=== PATIENT | male | born 1955 | race Caucasian/White ===

== ENCOUNTER 2022-12-31 00:52 | Observation (INO) | payer MEDICARE, OTHER ==
[2022-12-31] MEDS ORDERED: ONDANSETRON *ODT* 4 MG TABLET SL ONE (02:24)
[2022-12-31] MEDS ORDERED: ACETAMINOPHEN 325 MG TABLET (FP) PO ONE (02:25)
[2022-12-31] MEDS ORDERED: ONDANSETRON *ODT* 4 MG TABLET ONE (02:41)
[2022-12-31] MEDS ORDERED: ACETAMINOPHEN 325 MG TABLET (FP) ONE (02:41)
[2022-12-31] MEDS ORDERED: THIAMINE HCL 200 MG/2 ML VIAL IVPB ONE (04:37)
[2022-12-31] MEDS ORDERED: FAMOTIDINE 20 MG/50 ML IVPB 20 MG/50 ML MG IVPB ONE ×2 (04:38→04:55)
[2022-12-31] MEDS ORDERED: FOLIC ACID 1 MG TABLET (FP) PO ONE (04:44)
[2022-12-31] MEDS ORDERED: ONDANSETRON 4 MG/2 ML VIAL IVPUSH ONE (04:44)
[2022-12-31] MEDS ORDERED: FOLIC ACID 1 MG TABLET (FP) ONE (04:55)
[2022-12-31] MEDS ORDERED: ONDANSETRON 4 MG/2 ML VIAL ONE (04:55)
[2022-12-31] MEDS ORDERED: THIAMINE HCL 200 MG/2 ML VIAL ONE (04:55)
[2022-12-31 05:25] LABS: BASO % 0.9 % (0-2.0); EOS % 4.3 % (0-4.5); HEMATOCRIT 34.9 % (35.4-49); HEMOGLOBIN 11.8 GM/dL (11.7-16.9); LYMPH % 32.3 % (8-40); MCH 31.4 pg (25.7-33.7); MCHC 33.8 g/dl (32.0-35.9); MEAN CELL VOLUME 93.1 fl (80-96); MEAN PLT VOLUME 7.2 fl (7.5-11.1); MONO % 6.9 % (3.8-10.2); NEUT % 55.6 % (42.8-82.8); PLATELET COUNT 379 10^3/uL (134-434); RBC 3.74 M/mm3 (4.00-5.60); RDW 13.4 % (11.9-15.9); WHITE BLOOD COUNT 5.3 K/mm3 (4.0-10.0)
[2022-12-31 05:43] LABS: POTASSIUM 4.6 mmol/L (3.5-5.1)
[2022-12-31 05:45] LABS: CALCIUM 8.3 mg/dL (8.5-10.1)
[2022-12-31 05:46] LABS: ALBUMIN 3.4 g/dl (3.4-5.0); BLOOD UREA NITROGEN 9.1 mg/dL (7-18); MAGNESIUM 1.9 mg/dL (1.8-2.4)
[2022-12-31 05:48] LABS: CREATININE 0.8 mg/dL (0.55-1.3); PHOSPHOROUS 3.8 mg/dL (2.5-4.9)
[2022-12-31 05:50] LABS: BILIRUBIN,TOTAL 0.2 mg/dL (0.2-1); TOT PROT 7.1 g/dl (6.4-8.2)
[2022-12-31 05:52] LABS: INR 1.03 (0.83-1.09)
[2022-12-31 05:54] LABS: ACTIVATED PTT 28.3 SECONDS (25.2-36.5)
[2022-12-31] MEDS ORDERED: LACTATED RINGERS SOLUTION 1000 ML INFUS.BAG IV ONE (06:00)
[2022-12-31 08:12] LABS: EPI CELLS 14 /uL (0-25.1); HYALINE CASTS 1 /uL (0-3.1); PH,URINE 5.5 (5.0-8.0); URINE APPEARANCE CLEAR; URINE BACTERIA 103 /uL (0-1359); URINE BILIRUBIN NEGATIVE (NEGATIVE); URINE COLOR YELLOW; URINE GLUCOSE (UA) NEGATIVE (NEGATIVE); URINE KETONE TRACE (NEGATIVE); URINE LEUK ESTERASE TRACE (NEGATIVE); URINE NITRITE NEGATIVE (NEGATIVE); URINE PROTEIN NEGATIVE (NEGATIVE); URINE RBC 3 /uL (0-23.9); URINE UROBILINOGEN 0.2 mg/dL (0.2-1.0); URINE WBC 7 /uL (0-25.8)
[2022-12-31 08:35] LABS: COCAINE, UR NEGATIVE (NEGATIVE); METHADONE, UR NEGATIVE (NEGATIVE); OPIATES, URI NEGATIVE (NEGATIVE); PHENCYCLIDINE,URINE NEGATIVE (NEGATIVE); URINE AMPHETAMINES NEGATIVE (NEGATIVE); URINE BENZODIAZEPINES NEGATIVE (NEGATIVE)
[2022-12-31 08:36] LABS: URINE BARBITURATES NEGATIVE (NEGATIVE)
[2022-12-31 20:20] LABS: POTASSIUM 4.3 mmol/L (3.5-5.1)
[2022-12-31 20:22] LABS: BLOOD UREA NITROGEN 9.1 mg/dL (7-18)
[2022-12-31 20:25] LABS: CREATININE 0.8 mg/dL (0.55-1.3)
[2022-12-31] MEDS: PHENYTOIN NA EXTENDED 100 MG CAPSULE (FP) PO SCH (22:09)
[2023-01-01] MEDS: PHENYTOIN NA EXTENDED 100 MG CAPSULE (FP) PO SCH ×3 (05:58→21:45)
[2023-01-01] MEDS: LACTATED RINGERS SOLUTION 1,000 ML/1,000 ML INFUS.BAG IV SCH (05:58)
[2023-01-01] MEDS: THIAMINE HCL 100 MG TABLET (FP) PO SCH (09:22)
[2023-01-01] MEDS: FOLIC ACID 1 MG TABLET (FP) PO SCH (09:22)
[2023-01-01 11:06] LABS: CALCIUM 9.5 mg/dL (8.5-10.1)
[2023-01-01 11:07] LABS: BLOOD UREA NITROGEN 7.6 mg/dL (7-18)
[2023-01-01 11:10] LABS: CREATININE 0.8 mg/dL (0.55-1.3)
[2023-01-01] MEDS ORDERED: ACETAMINOPHEN 325 MG TABLET (FP) PO PRN (21:10)
[2023-01-02] MEDS: PHENYTOIN NA EXTENDED 100 MG CAPSULE (FP) PO SCH ×3 (06:17→21:28)
[2023-01-02] MEDS: LACTATED RINGERS SOLUTION 1,000 ML/1,000 ML INFUS.BAG IV SCH (06:18)
[2023-01-02] MEDS: FOLIC ACID 1 MG TABLET (FP) PO SCH (09:55)
[2023-01-02] MEDS: THIAMINE HCL 100 MG TABLET (FP) PO SCH (09:56)
[2023-01-02 11:05] LABS: POTASSIUM 3.9 mmol/L (3.5-5.1)
[2023-01-02 11:17] LABS: BLOOD UREA NITROGEN 8.1 mg/dL (7-18); CALCIUM 9.5 mg/dL (8.5-10.1)
[2023-01-02 11:21] LABS: CREATININE 0.8 mg/dL (0.55-1.3)
[2023-01-03] MEDS: PHENYTOIN NA EXTENDED 100 MG CAPSULE (FP) PO SCH ×2 (06:29→15:12)
[2023-01-03 08:14] VITALS: BP 106/72; PULSE 82; RESP 16; TEMP 97.7
[2023-01-03] MEDS: THIAMINE HCL 100 MG TABLET (FP) PO SCH (09:25)
[2023-01-03] MEDS: FOLIC ACID 1 MG TABLET (FP) PO SCH (09:25)
[2023-01-03] MEDS ORDERED: LIDOCAINE 4% PATCH TP ONE (10:00)
[2023-01-03 12:39] VITALS: BMI 18.8
[2023-01-03] MEDS ORDERED: LIDOCAINE PATCH REMOVAL MC ONE (22:00)
== END 2023-01-03 17:40 ==
LOC: JER 00:52 → JERBED 06:40 → J6S 17:42
PROVIDERS: ADMIT Family Medicine; ATTEND Family Medicine
PROC: 3E03329 Introduction of Other Anti-infective into Peripheral Vein, Percutaneous Approach (ICD-10-PCS; principal; 2022-12-31)
PROC: 3E0337Z Introduction of Electrolytic and Water Balance Substance into Peripheral Vein, Percutaneous Approach (ICD-10-PCS; 2022-12-31)
PROC: 3E033GC Introduction of Other Therapeutic Substance into Peripheral Vein, Percutaneous Approach (ICD-10-PCS; 2022-12-31)
DX: E87.1 Hypo-osmolality and hyponatremia (principal); K85.90 Acute pancreatitis without necrosis or infection, unspecified; F10.10 Alcohol abuse, uncomplicated; J44.9 Chronic obstructive pulmonary disease, unspecified; G40.909 Epilepsy, unspecified, not intractable, without status epilepticus; R29.6 Repeated falls; F17.200 Nicotine dependence, unspecified, uncomplicated
CPT/HCPCS: 0241U-QW; 36415; 71045-TC-FY; 74177-TC; 80048; 80053; 80307; 81003; 83605; 83690; 83735; 84100; 84484; 85025; 85610; 85730; 87086; 93005; 93010; 96361; 96365; 96375; 97116-GP; 97162-GP; 99285-25; G0378; Q0162; Q9967

== ENCOUNTER 2024-03-06 11:26 | Inpatient (IN) | payer OTHER ==
[2024-03-06] MEDS ORDERED: ACETAMINOPHEN 325 MG TABLET (FP) ONE (12:48)
[2024-03-06] MEDS: ACETAMINOPHEN 500 MG TABLET (FP) PO ONE (12:49)
[2024-03-06 13:02] LABS: BASO % 0.6 % (0-2.0); EOS % 2.5 % (0-4.5); HEMATOCRIT 34.3 % (35.4-49); HEMOGLOBIN 11.9 GM/dL (11.7-16.9); LYMPH % 16.9 % (8-40); MCH 31.7 pg (25.7-33.7); MCHC 34.8 g/dl (32.0-35.9); MEAN CELL VOLUME 91.1 fl (80-96); MEAN PLT VOLUME 7.1 fl (7.5-11.1); MONO % 11.7 % (3.8-10.2); NEUT % 68.3 % (42.8-82.8); PLATELET COUNT 281 10^3/uL (134-434); RBC 3.76 M/mm3 (4.00-5.60); WHITE BLOOD COUNT 5.1 K/mm3 (4.0-10.0)
[2024-03-06 13:16] LABS: POTASSIUM 4.3 mmol/L (3.5-5.1)
[2024-03-06 13:18] LABS: ALBUMIN 3.7 g/dl (3.4-5.0); CALCIUM 9.1 mg/dL (8.5-10.1)
[2024-03-06 13:22] LABS: CREATININE 0.8 mg/dL (0.55-1.3)
[2024-03-06 13:24] LABS: BILIRUBIN,TOTAL 0.2 mg/dL (0.2-1)
[2024-03-06 16:13] LABS: URINE APPEARANCE CLEAR; URINE BILIRUBIN NEGATIVE (NEGATIVE); URINE COLOR YELLOW; URINE GLUCOSE (UA) NEGATIVE (NEGATIVE); URINE KETONE NEGATIVE (NEGATIVE); URINE LEUK ESTERASE NEGATIVE (NEGATIVE); URINE NITRITE NEGATIVE (NEGATIVE); URINE PROTEIN NEGATIVE (NEGATIVE); URINE UROBILINOGEN 0.2 mg/dL (0.2-1.0)
[2024-03-07] MEDS ORDERED: ACETAMINOPHEN 1000 MG/100 ML BAG IVPB PRN (01:06)
[2024-03-07 06:08] VITALS: BMI 18.4
[2024-03-07 07:19] LABS: BASO % 0.9 % (0-2.0); EOS % 5.6 % (0-4.5); HEMATOCRIT 34.2 % (35.4-49); HEMOGLOBIN 11.3 GM/dL (11.7-16.9); LYMPH % 24.1 % (8-40); MCH 30.7 pg (25.7-33.7); MCHC 32.9 g/dl (32.0-35.9); MEAN CELL VOLUME 93.3 fl (80-96); MEAN PLT VOLUME 7.5 fl (7.5-11.1); MONO % 11.5 % (3.8-10.2); NEUT % 57.9 % (42.8-82.8); PLATELET COUNT 270 10^3/uL (134-434); RBC 3.66 M/mm3 (4.00-5.60); RDW 13.5 % (11.9-15.9); WHITE BLOOD COUNT 4.4 K/mm3 (4.0-10.0)
[2024-03-07 07:29] LABS: POTASSIUM 3.9 mmol/L (3.5-5.1)
[2024-03-07 07:30] LABS: CALCIUM 9.1 mg/dL (8.5-10.1)
[2024-03-07 07:31] LABS: ALBUMIN 3.8 g/dl (3.4-5.0); BLOOD UREA NITROGEN 12.3 mg/dL (7-18)
[2024-03-07 07:34] LABS: CREATININE 0.8 mg/dL (0.55-1.3)
[2024-03-07 07:36] LABS: BILIRUBIN,TOTAL 0.4 mg/dL (0.2-1)
[2024-03-07] MEDS: PHENYTOIN NA EXTENDED 100 MG CAPSULE (FP) PO SCH (07:46)
[2024-03-07] MEDS: THIAMINE 100 MG TABLET PO SCH (10:30)
[2024-03-07] MEDS: FOLIC ACID 1 MG TABLET (FP) PO SCH (10:30)
[2024-03-07] MEDS: NICOTINE 21 MG/24 HOURS TOPICAL PATCH TD SCH (21:04)
[2024-03-07] MEDS: BUDESONIDE/FORMETEROL FUMARATE 160/4.5 mcg INHALER IH SCH (21:05)
[2024-03-08 08:22] LABS: BASO % 0.8 % (0-2.0); EOS % 5.3 % (0-4.5); HEMOGLOBIN 11.8 GM/dL (11.7-16.9); LYMPH % 19.5 % (8-40); MCH 31.5 pg (25.7-33.7); MCHC 34.6 g/dl (32.0-35.9); MEAN PLT VOLUME 7.6 fl (7.5-11.1); MONO % 9.7 % (3.8-10.2); NEUT % 64.7 % (42.8-82.8); PLATELET COUNT 268 10^3/uL (134-434); RBC 3.74 M/mm3 (4.00-5.60); RDW 14.1 % (11.9-15.9); WHITE BLOOD COUNT 4.6 K/mm3 (4.0-10.0)
[2024-03-08 08:37] LABS: POTASSIUM 4.6 mmol/L (3.5-5.1)
[2024-03-08 08:45] LABS: CALCIUM 9.2 mg/dL (8.5-10.1)
[2024-03-08 08:46] LABS: ALBUMIN 3.7 g/dl (3.4-5.0); BLOOD UREA NITROGEN 13.3 mg/dL (7-18)
[2024-03-08 08:49] LABS: CREATININE 0.7 mg/dL (0.55-1.3)
[2024-03-08 08:50] LABS: BILIRUBIN,TOTAL 0.4 mg/dL (0.2-1); TOT PROT 7.1 g/dl (6.4-8.2)
[2024-03-08 08:57] LABS: N-TERMINAL BNP 250.5 pg/ml (5-125)
[2024-03-09 08:59] LABS: BASO % 0.8 % (0-2.0); EOS % 3.6 % (0-4.5); HEMOGLOBIN 11.8 GM/dL (11.7-16.9); LYMPH % 17.1 % (8-40); MCH 31.2 pg (25.7-33.7); MCHC 33.7 g/dl (32.0-35.9); MEAN CELL VOLUME 92.5 fl (80-96); MEAN PLT VOLUME 7.9 fl (7.5-11.1); MONO % 10.2 % (3.8-10.2); NEUT % 68.3 % (42.8-82.8); PLATELET COUNT 294 10^3/uL (134-434); RBC 3.79 M/mm3 (4.00-5.60); RDW 13.9 % (11.9-15.9); WHITE BLOOD COUNT 5.6 K/mm3 (4.0-10.0)
[2024-03-09 09:14] LABS: BLOOD UREA NITROGEN 11.6 mg/dL (7-18); CALCIUM 9.3 mg/dL (8.5-10.1)
[2024-03-09 09:15] LABS: ALBUMIN 3.7 g/dl (3.4-5.0)
[2024-03-09 09:17] LABS: BILIRUBIN,TOTAL 0.5 mg/dL (0.2-1); CREATININE 0.7 mg/dL (0.55-1.3)
[2024-03-09 09:19] LABS: TOT PROT 7.1 g/dl (6.4-8.2)
[2024-03-10] MEDS: ACETAMINOPHEN 1000 MG/100 ML BAG IVPB PRN (11:27)
[2024-03-10] MEDS: KETOROLAC TROMETHAMINE 15 MG/ML VIAL IVPUSH ONE (20:49)
[2024-03-10] MEDS: LIDOCAINE 4% PATCH TP SCH (21:36)
[2024-03-10 23:13] VITALS: RESP 18
[2024-03-11] MEDS: LIDOCAINE PATCH REMOVAL MC SCH (10:52)
[2024-03-11 13:12] VITALS: BP 113/67; PULSE 100; TEMP 97.5
== END 2024-03-11 11:24 | disposition home or self-care (01) | DRG 312 ==
LOC: JER 11:26 → JERBED 16:50 → J4S 20:42 → OBSVTOIN 03-07 01:01
PROVIDERS: ADMIT Internal Medicine; ATTEND Internal Medicine
DX: R55 Syncope and collapse (principal); J44.9 Chronic obstructive pulmonary disease, unspecified; G40.909 Epilepsy, unspecified, not intractable, without status epilepticus; I10 Essential (primary) hypertension; R29.6 Repeated falls; R25.1 Tremor, unspecified; F10.10 Alcohol abuse, uncomplicated; W19.XXXA Unspecified fall, initial encounter; Y92.008 Other place in unspecified non-institutional (private) residence as the place of occurrence of the external cause; Y99.8 Other external cause status
CPT/HCPCS: 0241U-QW; 36415; 70450-TC; 71045-TC-FY; 71101-TC-LT-FY; 72125-TC; 72170-TC-FY; 80053; 80061; 81003; 82962; 83036; 83735; 83880; 84439; 84443; 84484; 85025; 87086; 93005; 93010; 93306-TC; 93880-TC; 97116-GP; 97162-GP; 99285-25; G0378; J0131

== ENCOUNTER 2024-04-04 18:00 | Emergency (ER) | payer OTHER ==
[2024-04-04 19:02] LABS: INR 1.05 (0.83-1.09); PROTHROMBIN TIME (PATIENT) 11.5 SEC (9.7-13.0)
[2024-04-04 19:04] LABS: ACTIVATED PTT 32.6 SECONDS (25.2-36.5)
[2024-04-04 19:09] LABS: BASO % 0.9 % (0-2.0); EOS % 4.1 % (0-4.5); HEMATOCRIT 35.3 % (35.4-49); HEMOGLOBIN 11.6 GM/dL (11.7-16.9); LYMPH % 19.1 % (8-40); MCH 30.8 pg (25.7-33.7); MEAN CELL VOLUME 93.2 fl (80-96); MEAN PLT VOLUME 7.5 fl (7.5-11.1); MONO % 9.3 % (3.8-10.2); NEUT % 66.6 % (42.8-82.8); PLATELET COUNT 266 10^3/uL (134-434); RBC 3.79 M/mm3 (4.00-5.60); RDW 13.1 % (11.9-15.9); WHITE BLOOD COUNT 6.5 K/mm3 (4.0-10.0)
[2024-04-04 19:11] LABS: VENOUS BASE EXCESS 1.6 mmol/L (-2-2); VENOUS O2 SATURATION 23.9 % (70-80); VENOUS PCO2 56.7 mmHg (38-52); VENOUS PH 7.322 (7.310-7.410)
[2024-04-04 19:13] VITALS: RESP 18; BMI 19.3
[2024-04-04 19:17] LABS: POTASSIUM 4.3 mmol/L (3.5-5.1)
[2024-04-04 19:19] LABS: CALCIUM 8.9 mg/dL (8.5-10.1)
[2024-04-04 19:20] LABS: ALBUMIN 4.1 g/dl (3.4-5.0); BLOOD UREA NITROGEN 17.4 mg/dL (7-18)
[2024-04-04 19:23] LABS: CREATININE 0.7 mg/dL (0.55-1.3)
[2024-04-04 19:24] LABS: BILIRUBIN,TOTAL 0.2 mg/dL (0.2-1); TOT PROT 7.9 g/dl (6.4-8.2)
[2024-04-05 06:54] VITALS: BP 97/59; PULSE 91; TEMP 97.5
== END 2024-04-05 08:41 | disposition home or self-care (01) ==
LOC: JER 18:00
DX: F10.10 Alcohol abuse, uncomplicated (principal); M79.602 Pain in left arm; M79.605 Pain in left leg; E87.1 Hypo-osmolality and hyponatremia; Y90.6 Blood alcohol level of 120-199 mg/100 ml
CPT/HCPCS: 0241U-QW; 36415; 70450-TC; 71045-TC-FY; 71250-TC; 72125-TC; 80053; 80307; 82803; 82962; 83690; 84484; 85025; 85610; 85730; 93005; 93010; 99285-25

== ENCOUNTER 2024-04-07 18:57 | Inpatient (IN) | payer OTHER ==
[2024-04-07] MEDS ORDERED: FAMOTIDINE 20 MG/50 ML IVPB 20 MG/50 ML MG IVPB ONE (20:32)
[2024-04-07] MEDS ORDERED: ACETAMINOPHEN INJECTION 100 ML ONE (20:32)
[2024-04-07] MEDS: ACETAMINOPHEN 1000 MG/100 ML BAG IVPB ONE (20:44)
[2024-04-07] MEDS: SODIUM CHLORIDE 0.9% 500 ML INFUS.BAG IV ONE ×2 (20:44→23:24)
[2024-04-07] MEDS: FAMOTIDINE 20 MG/50 ML IVPB 20 MG/50 ML MG IVPB ONE (20:50)
[2024-04-07 20:58] LABS: BASO % 0.6 % (0-2.0); EOS % 5.2 % (0-4.5); HEMATOCRIT 31.5 % (35.4-49); HEMOGLOBIN 10.7 GM/dL (11.7-16.9); LYMPH % 25.4 % (8-40); MCH 31.2 pg (25.7-33.7); MCHC 34.1 g/dl (32.0-35.9); MEAN CELL VOLUME 91.5 fl (80-96); MEAN PLT VOLUME 7.1 fl (7.5-11.1); MONO % 9.1 % (3.8-10.2); NEUT % 59.7 % (42.8-82.8); PLATELET COUNT 250 10^3/uL (134-434); RBC 3.45 M/mm3 (4.00-5.60); RDW 13.3 % (11.9-15.9); WHITE BLOOD COUNT 5.6 K/mm3 (4.0-10.0)
[2024-04-07 21:15] LABS: POTASSIUM 4.2 mmol/L (3.5-5.1)
[2024-04-07 21:18] LABS: CALCIUM 9.1 mg/dL (8.5-10.1)
[2024-04-07 21:19] LABS: ALBUMIN 3.6 g/dl (3.4-5.0); MAGNESIUM 1.8 mg/dL (1.8-2.4)
[2024-04-07 21:23] LABS: BILIRUBIN,TOTAL 0.3 mg/dL (0.2-1); CREATININE 0.7 mg/dL (0.55-1.3); PHOSPHOROUS 3.7 mg/dL (2.5-4.9); TOT PROT 7.3 g/dl (6.4-8.2)
[2024-04-08] MEDS ORDERED: diazePAM CARPU-JECT 10 MG/2 ML DISP.SYRIN ONE (00:30)
[2024-04-08] MEDS: diazePAM CARPU-JECT 10 MG/2 ML DISP.SYRIN IVPUSH ONE (00:35)
[2024-04-08] MEDS ORDERED: DOCUSATE SODIUM 100 MG CAPSULE (FP) PO PRN (03:05)
[2024-04-08] MEDS ORDERED: FLUTICASONE PROP 0.05% 16 GM NASAL SPRAY NS PRN (05:51)
[2024-04-08] MEDS ORDERED: MELATONIN 5 MG TABLETS PO PRN (05:52)
[2024-04-08] MEDS: LACTATED RINGERS SOLUTION 1,000 ML/1,000 ML INFUS.BAG IV SCH (05:54)
[2024-04-08] MEDS: PHENYTOIN NA EXTENDED 100 MG CAPSULE (FP) PO SCH (06:18)
[2024-04-08 08:04] LABS: BASO % 0.9 % (0-2.0); HEMATOCRIT 29.9 % (35.4-49); HEMOGLOBIN 10.5 GM/dL (11.7-16.9); LYMPH % 13.9 % (8-40); MCH 31.9 pg (25.7-33.7); MCHC 34.9 g/dl (32.0-35.9); MEAN CELL VOLUME 91.2 fl (80-96); MONO % 11.5 % (3.8-10.2); NEUT % 67.7 % (42.8-82.8); PLATELET COUNT 242 10^3/uL (134-434); RBC 3.28 M/mm3 (4.00-5.60); RDW 13.3 % (11.9-15.9); WHITE BLOOD COUNT 5.4 K/mm3 (4.0-10.0)
[2024-04-08] MEDS ORDERED: PANTOPRAZOLE 40 MG TABLET PO ONE (09:54)
[2024-04-08] MEDS ORDERED: FOLIC ACID 1 MG TABLET (FP) ONE (09:54)
[2024-04-08] MEDS: FOLIC ACID 1 MG TABLET (FP) PO SCH (10:02)
[2024-04-08] MEDS: PANTOPRAZOLE 40 MG TABLET PO SCH (10:02)
[2024-04-08] MEDS: MULTIVITAMINS THER W-MINERALS COMBO TABLET (FP) PO SCH (10:03)
[2024-04-08] MEDS: THIAMINE 100 MG TABLET PO SCH (10:03)
[2024-04-08] MEDS: HEPARIN NA (PORCINE) 5,000 UNITS/ML 1ML VIAL SQ SCH (15:00)
[2024-04-08] MEDS ORDERED: PHENYTOIN NA EXTENDED 100 MG CAPSULE (FP) ONE ×2 (15:31→21:17)
[2024-04-08] MEDS ORDERED: HEPARIN NA (PORCINE) 5,000 UNITS/ML 1ML VIAL ONE ×2 (15:31→21:18)
[2024-04-08] MEDS: BUDESONIDE/FORMETEROL FUMARATE 160/4.5 mcg INHALER IH SCH (22:40)
[2024-04-09] MEDS ORDERED: HEPARIN NA (PORCINE) 5,000 UNITS/ML 1ML VIAL ONE ×2 (06:07→12:54)
[2024-04-09] MEDS ORDERED: PHENYTOIN NA EXTENDED 100 MG CAPSULE (FP) ONE ×2 (06:07→12:54)
[2024-04-09 07:22] LABS: BASO % 0.7 % (0-2.0); EOS % 8.3 % (0-4.5); HEMATOCRIT 29.6 % (35.4-49); HEMOGLOBIN 10.1 GM/dL (11.7-16.9); LYMPH % 17.5 % (8-40); MCH 31.7 pg (25.7-33.7); MCHC 34.3 g/dl (32.0-35.9); MEAN CELL VOLUME 92.4 fl (80-96); MEAN PLT VOLUME 7.7 fl (7.5-11.1); MONO % 11.3 % (3.8-10.2); NEUT % 62.2 % (42.8-82.8); PLATELET COUNT 243 10^3/uL (134-434); RDW 12.9 % (11.9-15.9); WHITE BLOOD COUNT 5.3 K/mm3 (4.0-10.0)
[2024-04-09 07:36] LABS: POTASSIUM 4.3 mmol/L (3.5-5.1)
[2024-04-09 07:44] LABS: CALCIUM 8.8 mg/dL (8.5-10.1)
[2024-04-09 07:45] LABS: ALBUMIN 3.3 g/dl (3.4-5.0); BLOOD UREA NITROGEN 17.4 mg/dL (7-18); MAGNESIUM 1.8 mg/dL (1.8-2.4)
[2024-04-09 07:48] LABS: CREATININE 0.6 mg/dL (0.55-1.3)
[2024-04-09 07:49] LABS: BILIRUBIN,TOTAL 0.3 mg/dL (0.2-1); TOT PROT 6.2 g/dl (6.4-8.2)
[2024-04-09 07:56] LABS: INR 1.05 (0.83-1.09); PROTHROMBIN TIME (PATIENT) 11.4 SEC (9.7-13.0)
[2024-04-09 07:59] LABS: ACTIVATED PTT 27.4 SECONDS (25.2-36.5)
[2024-04-09] MEDS ORDERED: FOLIC ACID 1 MG TABLET (FP) ONE (08:54)
[2024-04-09] MEDS ORDERED: NICOTINE 14 MG/24 HOURS TOPICAL PATCH TD ONE (16:23)
[2024-04-09] MEDS: NICOTINE 14 MG/24 HOURS TOPICAL PATCH TD SCH (16:39)
[2024-04-09] MEDS: ATORVASTATIN CA 10 MG TABLET (FP) PO SCH (22:58)
[2024-04-10 08:15] LABS: BASO % 0.7 % (0-2.0); HEMATOCRIT 30.5 % (35.4-49); HEMOGLOBIN 10.5 GM/dL (11.7-16.9); LYMPH % 18.9 % (8-40); MCH 31.6 pg (25.7-33.7); MCHC 34.3 g/dl (32.0-35.9); MEAN CELL VOLUME 92.3 fl (80-96); MEAN PLT VOLUME 8.1 fl (7.5-11.1); MONO % 9.9 % (3.8-10.2); NEUT % 63.5 % (42.8-82.8); PLATELET COUNT 257 10^3/uL (134-434); RBC 3.31 M/mm3 (4.00-5.60); RDW 13.3 % (11.9-15.9); WHITE BLOOD COUNT 4.8 K/mm3 (4.0-10.0)
[2024-04-10 08:37] LABS: POTASSIUM 4.3 mmol/L (3.5-5.1)
[2024-04-10 08:39] LABS: CALCIUM 9.2 mg/dL (8.5-10.1)
[2024-04-10 08:40] LABS: ALBUMIN 3.5 g/dl (3.4-5.0); BLOOD UREA NITROGEN 14.6 mg/dL (7-18)
[2024-04-10 08:43] LABS: CREATININE 0.7 mg/dL (0.55-1.3)
[2024-04-10 08:44] LABS: BILIRUBIN,TOTAL 0.4 mg/dL (0.2-1); TOT PROT 6.7 g/dl (6.4-8.2)
[2024-04-10 14:16] VITALS: BMI 17.1
[2024-04-10] MEDS: levETIRAcetam 500 MG TABLET (FP) PO SCH (22:05)
[2024-04-10] MEDS: levETIRAcetam 500 MG/5 ML INJECTION VIAL IVPB ONE (23:03)
[2024-04-11] MEDS: ACETAMINOPHEN 325 MG TABLET (FP) PO PRN (09:32)
[2024-04-11] MEDS: PHENYTOIN NA EXTENDED 100 MG CAPSULE (FP) PO SCH (21:56)
[2024-04-12 14:08] VITALS: BP 135/82; PULSE 90; RESP 16; TEMP 97.9
== END 2024-04-12 14:00 | DRG 896 ==
LOC: JER 18:57 → JERBED 04-08 00:32 → J4S 04-09 20:34
PROVIDERS: ADMIT Internal Medicine; ATTEND Internal Medicine
DX: F10.230 Alcohol dependence with withdrawal, uncomplicated (principal); E43 Unspecified severe protein-calorie malnutrition; J44.9 Chronic obstructive pulmonary disease, unspecified; G40.909 Epilepsy, unspecified, not intractable, without status epilepticus; I10 Essential (primary) hypertension; R55 Syncope and collapse; R26.81 Unsteadiness on feet; E78.5 Hyperlipidemia, unspecified; I95.89 Other hypotension
CPT/HCPCS: 0241U-QW; 36415; 70450-TC; 70551-TC; 71045-TC-FY; 80053; 83735; 84100; 84484; 85025; 85610; 85730; 93005; 93010; 93880-TC; 97116-GP; 97161-GP; 99285-25; J0131; J1644

== ENCOUNTER 2024-08-24 14:06 | Emergency (ER) | payer OTHER ==
[2024-08-24] MEDS: LACTATED RINGERS SOLUTION 1000 ML INFUS.BAG IV ONE (15:22)
[2024-08-24 15:27] LABS: ABSOLUTE IMMATURE GRANULOCYTES 0.02 x10^3/uL (0.0-0.031); BASOPHILS # 0.02 x10^3/uL (0.01-0.08); EOSINOPHIL % 1.6 % (0.8-7.0); EOSINOPHILS # 0.10 x10^3/uL (0.04-0.54); MCHC 32.8 g/dl (32.3-36.5); MEAN CELL VOLUME 91.7 fl (79.0-92.2); MEAN PLT VOLUME 9.3 fl (9.4-12.4); MONOCYTE # 0.56 x10^3/uL (0.30-0.82); MONOCYTE % 8.7 % (5.3-12.2); RDW 13.7 % (12.2-16.6)
[2024-08-24 15:51] VITALS: BP 132/82; PULSE 96; RESP 16; TEMP 98.1; BMI 17.2
[2024-08-24 16:37] LABS: HCV DIAGNOSTIC IN-HOUSE W/RFLX NON-REACTIVE (NONREACTIVE)
[2024-08-24 16:38] LABS: HIV INTERPRETATION NEGATIVE (NEGATIVE)
[2024-08-24 16:50] LABS: CO2 25.0 mmol/L (21-32)
[2024-08-24 16:51] LABS: GLUCOSE,RANDOM 91.0 mg/dL (74-106); SGOT/AST 34.0 U/L (15-37); SGPT/ALT 30.0 U/L (13-61)
[2024-08-24 16:52] LABS: CREATININE 0.8 mg/dL (0.55-1.3)
[2024-08-24 16:53] LABS: TOT PROT 8.5 g/dl (6.4-8.2)
[2024-08-24 16:56] LABS: ALK PHOS 125.0 U/L (45-117)
[2024-08-24 17:09] LABS: URINE APPEARANCE CLEAR; URINE BILIRUBIN NEGATIVE (NEGATIVE); URINE COLOR YELLOW; URINE GLUCOSE (UA) NEGATIVE (NEGATIVE); URINE KETONE NEGATIVE (NEGATIVE); URINE LEUK ESTERASE NEGATIVE (NEGATIVE); URINE NITRITE NEGATIVE (NEGATIVE); URINE PROTEIN NEGATIVE (NEGATIVE); URINE UROBILINOGEN 0.2 mg/dL (0.2-1.0)
== END 2024-08-24 18:34 | disposition home or self-care (01) ==
LOC: JER 14:06
DX: R42 Dizziness and giddiness (principal); R25.1 Tremor, unspecified; R53.1 Weakness; R05.9 Cough, unspecified; R06.02 Shortness of breath; R53.83 Other fatigue
CPT/HCPCS: 36415; 70450-TC; 71045-TC-FY; 80053; 81003; 82010; 82550; 82962; 83735; 84100; 84484; 85025; 86803; 86850; 86900; 86901; 87086; 87389; 87637-QW; 99285-25